=== PATIENT | female | born 1950 ===

== ENCOUNTER 2017-10-05 10:54 | Day surgery (SDC) | payer BC ==
[2017-10-05 09:44] VITALS: BMI 35.3
[2017-10-05] MEDS ORDERED: Adenosine 90 mg/30mL IV ONE (11:08)
[2017-10-05] MEDS ORDERED: Lidocaine 2% Inj (20ml) ONE (11:08)
[2017-10-05] MEDS ORDERED: Midazolam 2 MG/2 ML VIAL ONE ×3 (11:09→13:31)
[2017-10-05] MEDS ORDERED: Iodixanol 320 MG/ML 200 ML BOTTLE IV ONE (11:09)
[2017-10-05] MEDS ORDERED: HEPARIN SODIUM/NS 2,000 ML IV ONE (11:09)
[2017-10-05] MEDS ORDERED: Iohexol 350mgl/ml 50 ML ONE (11:09)
[2017-10-05 11:36] LABS: BASO # 0.01 K/mm3 (0.0-2.0); BASO % 0.2 % (0.0-3.0); EOS # 0.1 (0.0-0.7); GRAN # 2.45 (1.4-6.5); HEMOGLOBIN 15.2 g/dL (12.0-16.0); LYMPH % 50.1 % (22.0-35.0); MEAN CORPUSCULAR HEMOGLOBIN 31.1 pg (25.0-35.0); MEAN CORPUSCULAR HGB CONC 33.5 g/dl (31.0-37.0); MEAN PLATELET VOLUME 8.7 fl (7.0-11.0); MONO # 0.5 (0.1-0.6); MONO % 7.7 % (1.0-6.0); RBC 4.88 10^6/uL (3.5-6.1)
[2017-10-05 11:41] LABS: BLOOD UREA NITROGEN 16 mg/dL (7-21); CALCIUM 9.4 mg/dL (8.4-10.5); GFR AFRICAN-AMERICAN > 60; GFR NON-AFRICAN AMERICAN > 60; HDL CHOLESTEROL 38 mg/dL (29-60)
[2017-10-05 11:44] LABS: INR 0.96 (0.93-1.08); PARTIAL THROMBOPLASTIN TIME 29.3 Seconds (25.1-36.5)
[2017-10-05 11:52] LABS: LDL CHOLESTEROL 105 mg/dL (0-129)
[2017-10-05] MEDS ORDERED: Nitroglycerin 50mg in D5W 50 MG/250 ML BOTTLE IV ONE (12:08)
--- NOTE | 2017-10-05 12:14 | CARD ---
APPROVED REPORT EKG Measurement Heart [id number] <Conclusion> Normal sinus rhythm Normal ECG
[2017-10-05 14:53] VITALS: RESP 18; TEMP 97.4
[2017-10-05] MEDS ORDERED: Sodium Chloride 0.9% 1,000 ML IV SCH (15:00)
[2017-10-05] MEDS ORDERED: Bacitracin 500 Units/gm Oint Foilpak UD ONE (16:39)
[2017-10-05 17:32] VITALS: BP 122/73; PULSE 78; O2SAT 96
--- NOTE | 2017-10-06 01:23 | CARDCATH ---
PROCEDURE DATE: 10/05/2017 INDICATION FOR PROCEDURE: Ms. Lucina Ambriz is a 67-year-old female with past medical history significant for hypertension, dyslipidemia, obesity, sleep apnea. Referred to me for evaluation of symptom of atypical chest pain. The patient underwent a nuclear stress test which was equivocal in nature secondary to transient ischemic dilation for which she was brought to the cardiac slab stripper for further evaluation and treatment. She has prior history of possible angioplasty and stenting that was done at [facility] about [address] Bello. PROCEDURE PERFORMED: 1. Left heart catheterization with selective left and right coronary angiogram, left ventriculogram. 2. FFR interrogation of the mid LAD 60% lesion, physiologically nonsignificant at 0.88, 6-Czech right radial arterial access, wrist band for hemostasis. TECHNIQUES OF PROCEDURE: After obtaining informed consent, the patient was brought to the cardiac cath suite in post-absorptive, non-sedated state. The patient was prepped and draped in the usual sterile fashion. A 2% lidocaine was used for infiltration of anesthesia. Using a modified Seldinger technique, a 6-Czech sheath was introduced into right radial artery subsequently over a J-wire. A JR4 and JL4 diagnostic catheters were used to engage the right and left coronary systems. Angiograms were obtained in different orthogonal views. Subsequently, angiogram was obtained in the KESSLER view. Hemodynamics were obtained and the pullback gradients were noted. HEMODYNAMIC FINDINGS: Left ventricular end-diastolic pressure was 22 mmHg. There was no gradient noted upon the aortic valve pullback. There was no AI, no MR. Left ventricular ejection fraction estimated to be 60%. CORONARY ANATOMY: Left main large size vessel bifurcates into left anterior descending and left circumflex coronary artery. Left anterior descending artery is a large size vessel which gives off medium size diagonal branch and has mid 55% to 60% angiographic stenosis. Distally, the vessel tapers and is a type 2 vessel. Left circumflex runs in the AV groove, large size vessel gives off two obtuse marginal branches. Right coronary artery large size vessel gives off right PDA and PLV branches, right dominant system. TECHNIQUES OF INTERVENTION: After reviewing the above angiographic findings, the mid LAD 65% stenosis were further interrogated with physiological FFR, fractional flow reserve, wire. (2:20) Adenosine was infused. FFR was calculated to be 0.88 which was physiologically nonsignificant. Angiographically 60% mid LAD stenosis, physiologically nonsignificant with FFR of 0.88. RECOMMENDATIONS: Keep the patient on intensive medical management. Keep the patient on aspirin. Continue statins and Lovaza. Add low-dose beta blockers. The patient to be followed clinically by Dr. Rose. Thank you Dr. Rose for letting me participate in the care of your patient. Curry Pederson MD cc: Christo Rose MD
== END 2017-10-05 18:00 | disposition home or self-care (01) ==
LOC: CATH 10:54
PROVIDERS: ATTEND Internal Medicine Interventional Cardiology
DX: I25.10 Atherosclerotic heart disease of native coronary artery without angina pectoris (principal); E78.5 Hyperlipidemia, unspecified; I10 Essential (primary) hypertension; E66.9 Obesity, unspecified; Z68.35 Body mass index [BMI] 35.0-35.9, adult; G47.30 Sleep apnea, unspecified
CPT/HCPCS: 36415; 80048; 80061; 85025; 85175; 85610; 85730; 86850; 86900; 93005; 93458; 93571; 99152; 99153; C1769 ×2; C1887 ×3; C1894; J0153; J1644 ×2; J2250; J3010; J7030; J7040; Q9967